=== PATIENT | female | born 1995 | race American Indian/Alaskan Native ===

== ENCOUNTER 2022-01-03 19:53 | Inpatient (IN) | payer OTHER ==
--- NOTE | 2022-01-03 23:39 | Ultrasound Report ---
ULTRASOUND OBSTETRIC LIMITED INDICATION / CLINICAL INFORMATION: Decreased movement. COMPARISON: None available. FINDINGS: AMNIOTIC FLUID INDEX (cm) = 4.6 PRESENTATION: Cephalic. HEART RATE (beats per minute): 130 ADDITIONAL FINDINGS: None. IMPRESSION: Single live intrauterine with a decreased amniotic fluid index of 4.6 cm. Signer Name: Jered De Leon MD Signed: 01/03/2022 11:35 PM Workstation Name: [id number]
--- NOTE | 2022-01-04 00:50 | Ultrasound Report ---
ULTRASOUND OBSTETRIC INDICATION: gestation. Clinical Gestational Age (GA): 40.5 weeks TECHNIQUE: Transabdominal. COMPARISON: Limited OB ultrasound performed earlier today. FINDINGS: There is a single intrauterine . Biparietal Diameter = 9.50 cm = 38 weeks, 5 day(s). Head Circumference = 32.0 cm = 36 weeks, 1 day(s). Abdominal Circumference = 31.9 cm = 35 weeks, 5 day(s). Femur Length = 7.4 cm = 37 weeks, 6 day(s). Average Ultrasound Age (AUA) = 37 weeks, 1 day(s). Heart Rate: 132 beats per minute. Estimated Weight in grams (if calculated): 2999 Estimated Weight Growth Percentile (if calculated): 6 Position: cephalic. Cervix: closed. Length in cm (if measured): Not measured Placenta: Not well visualized. Amniotic Fluid Volume: decreased Amniotic Fluid Index (EVELYN) in cm (if calculated): 4.6. Maternal Adnexa: No significant abnormality. IMPRESSION: 1. Single, living intrauterine with estimated sonographic age of 37 weeks, 1 day(s). 2. Decreased amniotic fluid index of 4.6 cm. 3. No other significant abnormality. Signer Name: Jered De Leon MD Signed: 01/04/2022 12:46 AM Workstation Name: [id number]
--- NOTE | 2022-01-04 01:55 | History and Physical Report ---
History of Present Illness Date of examination: 01/04/22 Date of admission: 01/03/2022 Chief complaint: my fluid was low and i'm having contractions History of present illness: Pt is a that gives EDC of 12/30/2021 and EGA of 40wks 5 days today that presented to [facility] 01/03/22 stating she was seen by her canceling and cutting control clerk at a birthing center that told her that her fluid level was at a 4 and was advised to come to nearest hospital for evaluation on 01/02/22. She present to triage also c/o contractions. She does not have any records. Sono done here shows ferny of 4.6 and EFW falls in the 6%tile for given EDC and EGA is 37+ weeks. Pt adimtted for IOL for oligo, IUGR and latent labor. 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 Family/Genetic History: none Social history: no significant social history - Obstetrical History Expected Date of Delivery: 12/30/21 Actual Gestation: 40 Week(s) 5 Day(s) : 2 Para: 1 Number of Living Children: 1 Medications and Allergies Allergies Allergy/AdvReac Type Severity Reaction Status Date / Time No Known Allergies Allergy Unverified 01/03/22 22:54 Review of Systems All systems: negative - Vital Signs Vital signs: Vital Signs Pulse BP Pulse Ox 71 117/68 96 01/03/22 20:52 01/03/22 20:52 01/03/22 20:52 Temp Pulse Resp BP Pulse Ox 97.9 F 66 16 117/68 94 01/03/22 21:35 01/04/22 01:49 01/03/22 21:35 01/03/22 20:52 01/04/22 01:49 - Physical Exam Lungs: Positive: Normal air movement Abdomen: Positive: normal appearance, soft Genitourinary (Female): Positive: normal external genitalia, normal perenium, other. Negative: perineal/vulvar lesions Deep Tendon Reflex Grade: Normal +2 - Obstetrical FHR: category 1 Results All other labs normal. Assessment and Plan - Patient Problems (1) 40 weeks gestation of Current Visit: Yes Status: Acute (2) Oligohydramnios in de souza in third trimester Current Visit: Yes Status: Acute Plan to address problem: -admit for IOL (3) IUGR (intrauterine growth retardation) affecting mother Current Visit: Yes Status: Acute Qualifiers: Trimester: third trimester Plan to address problem: -admit for IOL -antibx for unknown gbs
[2022-01-04] MEDS ORDERED: LOPERAMIDE 2 MG CAP PO PRN (02:12)
[2022-01-04] MEDS ORDERED: CARBOPROST TROMETHAMINE 250 MCG/1 ML INJ IM PRN (02:12)
[2022-01-04] MEDS ORDERED: fentaNYL 100 MCG/2 ML INJ IV PRN (02:12)
[2022-01-04] MEDS ORDERED: ACETAMINOPHEN 325 MG TAB PO PRN (02:12)
[2022-01-04] MEDS ORDERED: MINERAL OIL 30 ML ORAL LIQD PO PRN (02:12)
[2022-01-04] MEDS ORDERED: ePHEDrine SULFATE 50 MG/1 ML INJ IV PRN (02:12)
[2022-01-04] MEDS ORDERED: BUTORPHANOL 2 MG/1 ML INJ IV PRN (02:12)
[2022-01-04] MEDS ORDERED: TERBUTALINE 1 MG/1 ML INJ SUB-Q PRN (02:12)
[2022-01-04] MEDS ORDERED: miSOPROStol 200 MCG TAB PR PRN (02:12)
[2022-01-04] MEDS ORDERED: LIDOCAINE (2%) 20 MG/1 ML VIAL 20 ML MDV INFILTRATI ONE (02:12)
[2022-01-04] MEDS ORDERED: METHYLERGONOVINE MALEATE 0.2 MG/ML VIAL IM PRN (02:12)
[2022-01-04] MEDS ORDERED: OXYTOCIN 10 UNIT/1 ML INJ IM PRN (02:12)
[2022-01-04] MEDS ORDERED: AMPICILLIN/NS 2 GM/100 ML 2 GM/100 ML BAG IV ONE (02:42)
[2022-01-04] MEDS ORDERED: OXYTOCIN DRIP 30 UNITS/500 ML BAG IV SCH (03:00)
[2022-01-04] MEDS: LACTATED RINGERS 1,000 ML IV SCH ×2 (03:05→13:43)
[2022-01-04 03:07] LABS: Hematocrit 34.5 % (30.3-42.9); Hemoglobin 11.3 gm/dl (10.1-14.3); Mean Corpuscular HGB Conc 33 % (30-34); Mean Corpuscular Volume 78 fl (79-97); Platelet Count 282 K/mm3 (140-440); Red Cell Distribution Width 15.8 % (13.2-15.2)
[2022-01-04] MEDS: OXYTOCIN DRIP 30 UNITS/500 ML BAG IV SCH ×6 (03:23→16:36)
[2022-01-04 03:38] LABS: Hepatitis C Virus Antibody Non-Reactive (NonReactive)
[2022-01-04] MEDS: AMPICILLIN/NS 1 GM/50 ML 1 GM/50 ML BAG IV SCH ×3 (07:10→17:55)
--- NOTE | 2022-01-04 10:52 | Progress Note ---
Assessment and Plan Patient states she received PNC at in the [facility] and had US's at [place], Dr. Novak. Records are not available. She was recently diagnosed IUGR and IOL at 39 weeks was recommended however patient refused. She was also being followed for EVELYN 5. She was get US's twice a week. Her last US was 01/02 that revealed EVELYN < 5 and she was instrd to go to the nearest facility for delivery. States she was diagnosed with hyperthyroidism 2017 and has been taking PTU 100mg tid. States her this was o/w been unremarkable. GBS result pending. Her last was uncomplicated, she delivered in [facility]. Will attempt to obtain records. Continue Ampicillin and pitocin induction. Questions encouraged and answered, she voiced understanding and agrees with POC - Patient Problems (1) 40 weeks gestation of Current Visit: Yes Status: Acute (2) Hyperthyroidism Current Visit: Yes Status: Acute (3) IUGR (intrauterine growth retardation) affecting mother Current Visit: Yes Status: Acute Qualifiers: Trimester: third trimester (4) Oligohydramnios in de souza in third trimester Current Visit: Yes Status: Acute Subjective - Subjective Date of service: 01/04/22 Principal diagnosis: IUP@40 6/7wga, IUGR, hyperthyroidism, oligohydramnios Patient reports: movement normal, no new complaints Objective - Vital Signs Vital Signs: Vital Signs - 12hr 01/03/22 01/03/22 01/03/22 22:41 22:46 22:51 Temperature Pulse Rate 73 70 74 Respiratory Rate Blood Pressure Blood Pressure [Left] O2 Sat by Pulse 97 95 97 Oximetry O2 Sat by Pulse Oximetry [ Anterior Bilateral Throughout] 01/03/22 01/03/22 01/03/22 22:56 23:01 23:06 Temperature Pulse Rate 75 80 66 Respiratory Rate Blood Pressure Blood Pressure [Left] O2 Sat by Pulse 98 96 96 Oximetry O2 Sat by Pulse Oximetry [ Anterior Bilateral Throughout] 01/03/22 01/03/22 01/03/22 23:11 23:53 23:58 Temperature Pulse Rate 78 71 73 Respiratory Rate Blood Pressure Blood Pressure [Left] O2 Sat by Pulse 97 96 97 Oximetry O2 Sat by Pulse Oximetry [ Anterior Bilateral Throughout] 01/04/22 01/04/22 01/04/22 00:03 00:05 00:08 Temperature Pulse Rate 76 82 75 Respiratory Rate Blood Pressure Blood Pressure [Left] O2 Sat by Pulse 97 93 97 Oximetry O2 Sat by Pulse Oximetry [ Anterior Bilateral Throughout] 01/04/22 01/04/22 01/04/22 00:13 00:18 00:23 Temperature Pulse Rate 81 70 76 Respiratory Rate Blood Pressure Blood Pressure [Left] O2 Sat by Pulse 96 97 98 Oximetry O2 Sat by Pulse Oximetry [ Anterior Bilateral Throughout] 01/04/22 01/04/22 01/04/22 00:28 00:34 00:39 Temperature Pulse Rate 78 83 86 Respiratory Rate Blood Pressure Blood Pressure [Left] O2 Sat by Pulse 97 95 96 Oximetry O2 Sat by Pulse Oximetry [ Anterior Bilateral Throughout] 01/04/22 01/04/22 01/04/22 00:44 00:49 00:54 Temperature Pulse Rate 76 67 66 Respiratory Rate Blood Pressure Blood Pressure [Left] O2 Sat by Pulse 98 98 97 Oximetry O2 Sat by Pulse Oximetry [ Anterior Bilateral Throughout] 01/04/22 01/04/22 01/04/22 00:59 01:04 01:09 Temperature Pulse Rate 84 68 74 Respiratory Rate Blood Pressure Blood Pressure [Left] O2 Sat by Pulse 96 97 96 Oximetry O2 Sat by Pulse Oximetry [ Anterior Bilateral Throughout] 01/04/22 01/04/22 01/04/22 01:14 01:19 01:24 Temperature Pulse Rate 75 64 64 Respiratory Rate Blood Pressure Blood Pressure [Left] O2 Sat by Pulse 97 97 96 Oximetry O2 Sat by Pulse Oximetry [ Anterior Bilateral Throughout] 01/04/22 01/04/22 01/04/22 01:29 01:34 01:39 Temperature Pulse Rate 70 68 71 Respiratory Rate Blood Pressure Blood Pressure [Left] O2 Sat by Pulse 97 96 96 Oximetry O2 Sat by Pulse Oximetry [ Anterior Bilateral Throughout] 01/04/22 01/04/22 01/04/22 01:42 01:44 01:49 Temperature Pulse Rate 65 65 66 Respiratory Rate Blood Pressure Blood Pressure [Left] O2 Sat by Pulse 93 96 94 Oximetry O2 Sat by Pulse Oximetry [ Anterior Bilateral Throughout] 01/04/22 01/04/22 01/04/22 01:54 01:59 02:04 Temperature Pulse Rate 91 H 74 84 Respiratory Rate Blood Pressure Blood Pressure [Left] O2 Sat by Pulse 98 98 98 Oximetry O2 Sat by Pulse Oximetry [ Anterior Bilateral Throughout] 01/04/22 01/04/22 01/04/22 02:09 02:14 02:19 Temperature Pulse Rate 74 76 81 Respiratory Rate Blood Pressure Blood Pressure [Left] O2 Sat by Pulse 98 98 97 Oximetry O2 Sat by Pulse Oximetry [ Anterior Bilateral Throughout] 01/04/22 01/04/22 01/04/22 02:24 02:34 02:39 Temperature Pulse Rate 69 65 Respiratory 17 Rate Blood Pressure 131/81 Blood Pressure [Left] O2 Sat by Pulse 97 99 Oximetry O2 Sat by Pulse 98 Oximetry [ Anterior Bilateral Throughout] 01/04/22 01/04/22 01/04/22 02:44 02:48 02:49 Temperature Pulse Rate 69 73 71 Respiratory Rate Blood Pressure Blood Pressure [Left] O2 Sat by Pulse 97 93 97 Oximetry O2 Sat by Pulse Oximetry [ Anterior Bilateral Throughout] 01/04/22 01/04/22 01/04/22 02:54 02:59 03:03 Temperature Pulse Rate 69 67 67 Respiratory Rate Blood Pressure Blood Pressure [Left] O2 Sat by Pulse 96 98 93 Oximetry O2 Sat by Pulse Oximetry [ Anterior Bilateral Throughout] 01/04/22 01/04/22 01/04/22 03:04 03:09 03:14 Temperature Pulse Rate 65 68 64 Respiratory Rate Blood Pressure Blood Pressure [Left] O2 Sat by Pulse 97 99 97 Oximetry O2 Sat by Pulse Oximetry [ Anterior Bilateral Throughout] 01/04/22 01/04/22 01/04/22 03:19 03:24 03:29 Temperature Pulse Rate 59 L 70 68 Respiratory Rate Blood Pressure Blood Pressure [Left] O2 Sat by Pulse 97 98 98 Oximetry O2 Sat by Pulse Oximetry [ Anterior Bilateral Throughout] 01/04/22 01/04/22 01/04/22 03:34 03:40 03:45 Temperature Pulse Rate 84 60 63 Respiratory Rate Blood Pressure 120/80 Blood Pressure [Left] O2 Sat by Pulse 98 95 98 Oximetry O2 Sat by Pulse Oximetry [ Anterior Bilateral Throughout] 01/04/22 01/04/22 01/04/22 03:50 03:55 04:00 Temperature Pulse Rate 61 64 64 Respiratory Rate Blood Pressure Blood Pressure [Left] O2 Sat by Pulse 97 96 95 Oximetry O2 Sat by Pulse Oximetry [ Anterior Bilateral Throughout] 01/04/22 01/04/22 01/04/22 04:05 04:10 04:15 Temperature Pulse Rate 66 62 65 Respiratory Rate Blood Pressure Blood Pressure [Left] O2 Sat by Pulse 96 96 95 Oximetry O2 Sat by Pulse Oximetry [ Anterior Bilateral Throughout] 01/04/22 01/04/22 01/04/22 04:16 04:20 04:23 Temperature Pulse Rate 62 63 64 Respiratory Rate Blood Pressure Blood Pressure [Left] O2 Sat by Pulse 94 96 94 Oximetry O2 Sat by Pulse Oximetry [ Anterior Bilateral Throughout] 01/04/22 01/04/22 01/04/22 04:25 04:30 04:35 Temperature Pulse Rate 67 70 62 Respiratory Rate Blood Pressure Blood Pressure [Left] O2 Sat by Pulse 94 95 95 Oximetry O2 Sat by Pulse Oximetry [ Anterior Bilateral Throughout] 01/04/22 01/04/22 01/04/22 04:40 04:45 04:50 Temperature Pulse Rate 69 64 79 Respiratory Rate Blood Pressure 100/64 Blood Pressure [Left] O2 Sat by Pulse 94 93 95 Oximetry O2 Sat by Pulse Oximetry [ Anterior Bilateral Throughout] 01/04/22 01/04/22 01/04/22 04:55 05:00 05:05 Temperature Pulse Rate 62 64 80 Respiratory Rate Blood Pressure Blood Pressure [Left] O2 Sat by Pulse 94 96 95 Oximetry O2 Sat by Pulse Oximetry [ Anterior Bilateral Throughout] 01/04/22 01/04/22 01/04/22 05:10 05:15 05:16 Temperature Pulse Rate 64 72 75 Respiratory Rate Blood Pressure Blood Pressure [Left] O2 Sat by Pulse 94 95 94 Oximetry O2 Sat by Pulse Oximetry [ Anterior Bilateral Throughout] 01/04/22 01/04/22 01/04/22 05:20 05:21 05:25 Temperature Pulse Rate 70 66 65 Respiratory Rate Blood Pressure Blood Pressure [Left] O2 Sat by Pulse 96 93 94 Oximetry O2 Sat by Pulse Oximetry [ Anterior Bilateral Throughout] 01/04/22 01/04/22 01/04/22 05:27 05:30 05:34 Temperature Pulse Rate 74 71 69 Respiratory Rate Blood Pressure Blood Pressure [Left] O2 Sat by Pulse 94 95 94 Oximetry O2 Sat by Pulse Oximetry [ Anterior Bilateral Throughout] 01/04/22 01/04/22 01/04/22 05:35 05:39 05:40 Temperature Pulse Rate 63 66 65 Respiratory Rate Blood Pressure Blood Pressure [Left] O2 Sat by Pulse 95 92 95 Oximetry O2 Sat by Pulse Oximetry [ Anterior Bilateral Throughout] 01/04/22 01/04/22 01/04/22 05:41 05:44 05:45 Temperature Pulse Rate 63 62 62 Respiratory Rate Blood Pressure 100/66 Blood Pressure [Left] O2 Sat by Pulse 92 94 Oximetry O2 Sat by Pulse Oximetry [ Anterior Bilateral Throughout] 01/04/22 01/04/22 01/04/22 05:50 05:51 05:55 Temperature Pulse Rate 69 67 61 Respiratory Rate Blood Pressure Blood Pressure [Left] O2 Sat by Pulse 95 94 94 Oximetry O2 Sat by Pulse Oximetry [ Anterior Bilateral Throughout] 01/04/22 01/04/22 01/04/22 05:57 06:00 06:02 Temperature Pulse Rate 67 67 67 Respiratory Rate Blood Pressure Blood Pressure [Left] O2 Sat by Pulse 94 95 94 Oximetry O2 Sat by Pulse Oximetry [ Anterior Bilateral Throughout] 01/04/22 01/04/22 01/04/22 06:05 06:08 06:10 Temperature Pulse Rate 57 L 61 61 Respiratory Rate Blood Pressure Blood Pressure [Left] O2 Sat by Pulse 95 94 95 Oximetry O2 Sat by Pulse Oximetry [ Anterior Bilateral Throughout] 01/04/22 01/04/22 01/04/22 06:13 06:15 06:35 Temperature Pulse Rate 59 L 73 64 Respiratory Rate Blood Pressure Blood Pressure [Left] O2 Sat by Pulse 94 94 97 Oximetry O2 Sat by Pulse Oximetry [ Anterior Bilateral Throughout] 01/04/22 01/04/22 01/04/22 06:40 06:45 06:50 Temperature Pulse Rate 63 62 63 Respiratory Rate Blood Pressure Blood Pressure [Left] O2 Sat by Pulse 96 96 97 Oximetry O2 Sat by Pulse Oximetry [ Anterior Bilateral Throughout] 01/04/22 01/04/22 01/04/22 06:55 07:00 07:05 Temperature Pulse Rate 61 63 62 Respiratory Rate Blood Pressure Blood Pressure [Left] O2 Sat by Pulse 96 96 94 Oximetry O2 Sat by Pulse Oximetry [ Anterior Bilateral Throughout] 01/04/22 01/04/22 01/04/22 07:10 07:13 07:15 Temperature Pulse Rate 64 68 65 Respiratory Rate Blood Pressure Blood Pressure [Left] O2 Sat by Pulse 96 94 96 Oximetry O2 Sat by Pulse Oximetry [ Anterior Bilateral Throughout] 0901/04/22 01/04/22 07:17 07:20 07:25 Temperature 98 F Pulse Rate 66 72 70 Respiratory 18 Rate Blood Pressure Blood Pressure 123/80 [Left] O2 Sat by Pulse 97 97 98 Oximetry O2 Sat by Pulse 97 Oximetry [ Anterior Bilateral Throughout] 01/04/22 01/04/22 01/04/22 07:30 07:35 07:40 Temperature Pulse Rate 75 65 69 Respiratory Rate Blood Pressure Blood Pressure [Left] O2 Sat by Pulse 97 97 96 Oximetry O2 Sat by Pulse Oximetry [ Anterior Bilateral Throughout] 01/04/22 01/04/22 01/04/22 07:45 07:47 07:49 Temperature Pulse Rate 67 66 71 Respiratory Rate Blood Pressure 123/80 Blood Pressure [Left] O2 Sat by Pulse 96 94 Oximetry O2 Sat by Pulse Oximetry [ Anterior Bilateral Throughout] 01/04/22 01/04/22 01/04/22 07:50 08:01 08:06 Temperature Pulse Rate 68 71 Respiratory Rate Blood Pressure Blood Pressure [Left] O2 Sat by Pulse 96 86 96 Oximetry O2 Sat by Pulse Oximetry [ Anterior Bilateral Throughout] 01/04/22 01/04/22 01/04/22 08:11 08:16 08:21 Temperature Pulse Rate 78 67 65 Respiratory Rate Blood Pressure Blood Pressure [Left] O2 Sat by Pulse 97 97 98 Oximetry O2 Sat by Pulse Oximetry [ Anterior Bilateral Throughout] 01/04/22 01/04/22 01/04/22 08:26 08:31 08:36 Temperature Pulse Rate 75 67 74 Respiratory Rate Blood Pressure Blood Pressure [Left] O2 Sat by Pulse 97 96 97 Oximetry O2 Sat by Pulse Oximetry [ Anterior Bilateral Throughout] 01/04/22 01/04/22 01/04/22 08:41 08:46 08:51 Temperature Pulse Rate 74 68 74 Respiratory Rate Blood Pressure Blood Pressure [Left] O2 Sat by Pulse 96 97 96 Oximetry O2 Sat by Pulse Oximetry [ Anterior Bilateral Throughout] 01/04/22 01/04/22 01/04/22 08:56 08:58 09:19 Temperature Pulse Rate 67 85 85 Respiratory Rate Blood Pressure Blood Pressure [Left] O2 Sat by Pulse 98 90 97 Oximetry O2 Sat by Pulse Oximetry [ Anterior Bilateral Throughout] 01/04/22 01/04/22 01/04/22 09:24 09:29 09:34 Temperature Pulse Rate 91 H 101 H 95 H Respiratory Rate Blood Pressure Blood Pressure [Left] O2 Sat by Pulse 96 98 98 Oximetry O2 Sat by Pulse Oximetry [ Anterior Bilateral Throughout] 01/04/22 01/04/22 01/04/22 09:39 09:44 09:49 Temperature Pulse Rate 75 72 81 Respiratory Rate Blood Pressure Blood Pressure [Left] O2 Sat by Pulse 97 97 96 Oximetry O2 Sat by Pulse Oximetry [ Anterior Bilateral Throughout] 01/04/22 01/04/22 01/04/22 09:54 09:59 10:04 Temperature Pulse Rate 72 74 74 Respiratory Rate Blood Pressure Blood Pressure [Left] O2 Sat by Pulse 96 96 98 Oximetry O2 Sat by Pulse Oximetry [ Anterior Bilateral Throughout] 01/04/22 01/04/22 01/04/22 10:08 10:09 10:14 Temperature Pulse Rate 75 73 70 Respiratory Rate Blood Pressure Blood Pressure [Left] O2 Sat by Pulse 93 98 98 Oximetry O2 Sat by Pulse Oximetry [ Anterior Bilateral Throughout] 01/04/22 01/04/22 01/04/22 10:19 10:24 10:29 Temperature Pulse Rate 83 76 74 Respiratory Rate Blood Pressure Blood Pressure [Left] O2 Sat by Pulse 98 98 99 Oximetry O2 Sat by Pulse Oximetry [ Anterior Bilateral Throughout] 01/04/22 10:34 Temperature Pulse Rate 88 Respiratory Rate Blood Pressure Blood Pressure [Left] O2 Sat by Pulse 99 Oximetry O2 Sat by Pulse Oximetry [ Anterior Bilateral Throughout] - Exam Breasts: deferred Cardiovascular: Regular rate Lungs: Normal air movement Abdomen: Present: soft. Absent: distention, tenderness, guarding Vulva: both: normal Uterus: Present: fundal height above umbilicus. Absent: tenderness FHR: category 1 Uterine Contraction Monitor Mode: External Cervical Dilatation: 4 Cervical Effacement Percentage: 80 station: -1 Uterine Contraction Pattern: Regular Extremities: normal - Labs Labs: Abnormal Labs 01/04/22 02:13 MCV 78 L MCH 26 L RDW 15.8 H Laboratory Results - last 24 hr 01/04/22 01/04/22 01/04/22 02:13 02:13 02:13 WBC 6.4 RBC 4.40 Hgb 11.3 Hct 34.5 MCV 78 L MCH 26 L MCHC 33 RDW 15.8 H Plt Count 282 Sickle Cell Screen Positive Syphilis IgG/IgM Ab Nonreactive Hep Bs Antigen Hepatitis C Antibody Non-reactive HIV 1&2 Antibody Rapid HIV P24 Antigen Blood Type O POSITIVE Antibody Screen Negative 01/04/22 01/04/22 02:13 02:13 WBC RBC Hgb Hct MCV MCH MCHC RDW Plt Count Sickle Cell Screen Syphilis IgG/IgM Ab Hep Bs Antigen Non-reactive Hepatitis C Antibody HIV 1&2 Antibody Rapid Non react HIV P24 Antigen Non react Blood Type Antibody Screen
--- NOTE | 2022-01-04 15:11 | Progress Note ---
Assessment and Plan Continue pitocin - Patient Problems (1) 40 weeks gestation of Current Visit: Yes Status: Acute (2) Hyperthyroidism Current Visit: Yes Status: Acute (3) IUGR (intrauterine growth retardation) affecting mother Current Visit: Yes Status: Acute Qualifiers: Trimester: third trimester (4) Oligohydramnios in de souza in third trimester Current Visit: Yes Status: Acute Subjective - Subjective Date of service: 01/04/22 Principal diagnosis: IUP@40 6/7wga, IUGR, hyperthyroidism, oligohydramnios Patient reports: loss of fluid, movement normal, no new complaints Objective - Vital Signs Vital Signs: Vital Signs - 12hr 01/04/22 01/04/22 01/04/22 03:14 03:19 03:24 Temperature Pulse Rate 64 59 L 70 Respiratory Rate Blood Pressure Blood Pressure [Left] O2 Sat by Pulse 97 97 98 Oximetry O2 Sat by Pulse Oximetry [ Anterior Bilateral Throughout] 01/04/22 01/04/22 01/04/22 03:29 03:34 03:40 Temperature Pulse Rate 68 84 60 Respiratory Rate Blood Pressure 120/80 Blood Pressure [Left] O2 Sat by Pulse 98 98 95 Oximetry O2 Sat by Pulse Oximetry [ Anterior Bilateral Throughout] 01/04/22 01/04/22 01/04/22 03:45 03:50 03:55 Temperature Pulse Rate 63 61 64 Respiratory Rate Blood Pressure Blood Pressure [Left] O2 Sat by Pulse 98 97 96 Oximetry O2 Sat by Pulse Oximetry [ Anterior Bilateral Throughout] 01/04/22 01/04/22 01/04/22 04:00 04:05 04:10 Temperature Pulse Rate 64 66 62 Respiratory Rate Blood Pressure Blood Pressure [Left] O2 Sat by Pulse 95 96 96 Oximetry O2 Sat by Pulse Oximetry [ Anterior Bilateral Throughout] 01/04/22 01/04/22 01/04/22 04:15 04:16 04:20 Temperature Pulse Rate 65 62 63 Respiratory Rate Blood Pressure Blood Pressure [Left] O2 Sat by Pulse 95 94 96 Oximetry O2 Sat by Pulse Oximetry [ Anterior Bilateral Throughout] 01/04/22 01/04/22 01/04/22 04:23 04:25 04:30 Temperature Pulse Rate 64 67 70 Respiratory Rate Blood Pressure Blood Pressure [Left] O2 Sat by Pulse 94 94 95 Oximetry O2 Sat by Pulse Oximetry [ Anterior Bilateral Throughout] 01/04/22 01/04/2201/04/22 04:35 04:40 04:45 Temperature Pulse Rate 62 69 64 Respiratory Rate Blood Pressure 100/64 Blood Pressure [Left] O2 Sat by Pulse 95 94 93 Oximetry O2 Sat by Pulse Oximetry [ Anterior Bilateral Throughout] 01/04/22 01/04/22 01/04/22 04:50 04:55 05:00 Temperature Pulse Rate 79 62 64 Respiratory Rate Blood Pressure Blood Pressure [Left] O2 Sat by Pulse 95 94 96 Oximetry O2 Sat by Pulse Oximetry [ Anterior Bilateral Throughout] 01/04/22 01/04/22 01/04/22 05:05 05:10 05:15 Temperature Pulse Rate 80 64 72 Respiratory Rate Blood Pressure Blood Pressure [Left] O2 Sat by Pulse 95 94 95 Oximetry O2 Sat by Pulse Oximetry [ Anterior Bilateral Throughout] 01/04/22 01/04/22 01/04/22 05:16 05:20 05:21 Temperature Pulse Rate 75 70 66 Respiratory Rate Blood Pressure Blood Pressure [Left] O2 Sat by Pulse 94 96 93 Oximetry O2 Sat by Pulse Oximetry [ Anterior Bilateral Throughout] 01/04/22 01/04/22 01/04/22 05:25 05:27 05:30 Temperature Pulse Rate 65 74 71 Respiratory Rate Blood Pressure Blood Pressure [Left] O2 Sat by Pulse 94 94 95 Oximetry O2 Sat by Pulse Oximetry [ Anterior Bilateral Throughout] 01/04/22 01/04/22 01/04/22 05:34 05:35 05:39 Temperature Pulse Rate 69 63 66 Respiratory Rate Blood Pressure Blood Pressure [Left] O2 Sat by Pulse 94 95 92 Oximetry O2 Sat by Pulse Oximetry [ Anterior Bilateral Throughout] 01/04/22 01/04/22 01/04/22 05:40 05:41 05:44 Temperature Pulse Rate 65 63 62 Respiratory Rate Blood Pressure 100/66 Blood Pressure [Left] O2 Sat by Pulse 95 92 Oximetry O2 Sat by Pulse Oximetry [ Anterior Bilateral Throughout] 01/04/22 01/04/22 01/04/22 05:45 05:50 05:51 Temperature Pulse Rate 62 69 67 Respiratory Rate Blood Pressure Blood Pressure [Left] O2 Sat by Pulse 94 95 94 Oximetry O2 Sat by Pulse Oximetry [ Anterior Bilateral Throughout] 01/04/22 01/04/22 01/04/22 05:55 05:57 06:00 Temperature Pulse Rate 61 67 67 Respiratory Rate Blood Pressure Blood Pressure [Left] O2 Sat by Pulse 94 94 95 Oximetry O2 Sat by Pulse Oximetry [ Anterior Bilateral Throughout] 01/04/22 01/04/22 01/04/22 06:02 06:05 06:08 Temperature Pulse Rate 67 57 L 61 Respiratory Rate Blood Pressure Blood Pressure [Left] O2 Sat by Pulse 94 95 94 Oximetry O2 Sat by Pulse Oximetry [ Anterior Bilateral Throughout] 01/04/22 01/04/22 01/04/22 06:10 06:13 06:15 Temperature Pulse Rate 61 59 L 73 Respiratory Rate Blood Pressure Blood Pressure [Left] O2 Sat by Pulse 95 94 94 Oximetry O2 Sat by Pulse Oximetry [ Anterior Bilateral Throughout] 01/04/22 01/04/22 01/04/22 06:35 06:40 06:45 Temperature Pulse Rate 64 63 62 Respiratory Rate Blood Pressure Blood Pressure [Left] O2 Sat by Pulse 97 96 96 Oximetry O2 Sat by Pulse Oximetry [ Anterior Bilateral Throughout] 01/04/22 01/04/22 01/04/22 06:50 06:55 07:00 Temperature Pulse Rate 63 61 63 Respiratory Rate Blood Pressure Blood Pressure [Left] O2 Sat by Pulse 97 96 96 Oximetry O2 Sat by Pulse Oximetry [ Anterior Bilateral Throughout] 01/04/22 01/04/22 01/04/22 07:05 07:10 07:13 Temperature Pulse Rate 62 64 68 Respiratory Rate Blood Pressure Blood Pressure [Left] O2 Sat by Pulse 94 96 94 Oximetry O2 Sat by Pulse Oximetry [ Anterior Bilateral Throughout] 01/04/22 01/04/22 01/04/22 07:15 07:17 07:20 Temperature 98 F Pulse Rate 65 66 72 Respiratory 18 Rate Blood Pressure Blood Pressure 123/80 [Left] O2 Sat by Pulse 96 97 97 Oximetry O2 Sat by Pulse 97 Oximetry [ Anterior Bilateral Throughout] 01/04/22 01/04/22 01/04/22 07:25 07:30 07:35 Temperature Pulse Rate 70 75 65 Respiratory Rate Blood Pressure Blood Pressure [Left] O2 Sat by Pulse 98 97 97 Oximetry O2 Sat by Pulse Oximetry [ Anterior Bilateral Throughout] 01/04/22 01/04/22 01/04/22 07:40 07:45 07:47 Temperature Pulse Rate 69 67 66 Respiratory Rate Blood Pressure 123/80 Blood Pressure [Left] O2 Sat by Pulse 96 96 Oximetry O2 Sat by Pulse Oximetry [ Anterior Bilateral Throughout] 01/04/22 01/04/22 01/04/22 07:49 07:50 08:01 Temperature Pulse Rate 71 68 Respiratory Rate Blood Pressure Blood Pressure [Left] O2 Sat by Pulse 94 96 86 Oximetry O2 Sat by Pulse Oximetry [ Anterior Bilateral Throughout] 01/04/22 01/04/22 01/04/22 08:06 08:11 08:16 Temperature Pulse Rate 71 78 67 Respiratory Rate Blood Pressure Blood Pressure [Left] O2 Sat by Pulse 96 97 97 Oximetry O2 Sat by Pulse Oximetry [ Anterior Bilateral Throughout] 01/04/22 01/04/22 01/04/22 08:21 08:26 08:31 Temperature Pulse Rate 65 75 67 Respiratory Rate Blood Pressure Blood Pressure [Left] O2 Sat by Pulse 98 97 96 Oximetry O2 Sat by Pulse Oximetry [ Anterior Bilateral Throughout] 01/04/22 01/04/22 01/04/22 08:36 08:41 08:46 Temperature Pulse Rate 74 74 68 Respiratory Rate Blood Pressure Blood Pressure [Left] O2 Sat by Pulse 97 96 97 Oximetry O2 Sat by Pulse Oximetry [ Anterior Bilateral Throughout] 01/04/22 01/04/22 01/04/22 08:51 08:56 08:58 Temperature Pulse Rate 74 67 85 Respiratory Rate Blood Pressure Blood Pressure [Left] O2 Sat by Pulse 96 98 90 Oximetry O2 Sat by Pulse Oximetry [ Anterior Bilateral Throughout] 01/04/22 01/04/22 01/04/22 09:19 09:24 09:29 Temperature Pulse Rate 85 91 H 101 H Respiratory Rate Blood Pressure Blood Pressure [Left] O2 Sat by Pulse 97 96 98 Oximetry O2 Sat by Pulse Oximetry [ Anterior Bilateral Throughout] 01/04/22 01/04/22 01/04/22 09:34 09:39 09:44 Temperature Pulse Rate 95 H 75 72 Respiratory Rate Blood Pressure Blood Pressure [Left] O2 Sat by Pulse 98 97 97 Oximetry O2 Sat by Pulse Oximetry [ Anterior Bilateral Throughout] 01/04/22 01/04/22 01/04/22 09:49 09:54 09:59 Temperature Pulse Rate 81 72 74 Respiratory Rate Blood Pressure Blood Pressure [Left] O2 Sat by Pulse 96 96 96 Oximetry O2 Sat by Pulse Oximetry [ Anterior Bilateral Throughout] 01/04/22 01/04/22 01/04/22 10:04 10:08 10:09 Temperature Pulse Rate 74 75 73 Respiratory Rate Blood Pressure Blood Pressure [Left] O2 Sat by Pulse 98 93 98 Oximetry O2 Sat by Pulse Oximetry [ Anterior Bilateral Throughout] 01/04/22 01/04/22 01/04/22 10:14 10:19 10:24 Temperature Pulse Rate 70 83 76 Respiratory Rate Blood Pressure Blood Pressure [Left] O2 Sat by Pulse 98 98 98 Oximetry O2 Sat by Pulse Oximetry [ Anterior Bilateral Throughout] 01/04/22 01/04/22 01/04/22 10:29 10:34 10:39 Temperature Pulse Rate 74 88 95 H Respiratory Rate Blood Pressure Blood Pressure [Left] O2 Sat by Pulse 99 99 95 Oximetry O2 Sat by Pulse Oximetry [ Anterior Bilateral Throughout] 01/04/22 01/04/22 01/04/22 10:50 10:55 11:00 Temperature Pulse Rate 76 71 100 H Respiratory Rate Blood Pressure Blood Pressure [Left] O2 Sat by Pulse 100 97 97 Oximetry O2 Sat by Pulse Oximetry [ Anterior Bilateral Throughout] 01/04/22 01/04/22 01/04/22 11:05 11:10 11:13 Temperature Pulse Rate 78 79 82 Respiratory Rate Blood Pressure Blood Pressure [Left] O2 Sat by Pulse 96 96 94 Oximetry O2 Sat by Pulse Oximetry [ Anterior Bilateral Throughout] 01/04/22 01/04/22 01/04/22 11:15 11:20 11:25 Temperature Pulse Rate 76 77 74 Respiratory Rate Blood Pressure Blood Pressure [Left] O2 Sat by Pulse 96 96 97 Oximetry O2 Sat by Pulse Oximetry [ Anterior Bilateral Throughout] 01/04/22 01/04/22 01/04/22 11:30 11:35 11:40 Temperature Pulse Rate 70 70 73 Respiratory Rate Blood Pressure Blood Pressure [Left] O2 Sat by Pulse 99 97 96 Oximetry O2 Sat by Pulse Oximetry [ Anterior Bilateral Throughout] 01/04/22 01/04/22 01/04/22 11:45 11:51 12:15 Temperature Pulse Rate 68 73 66 Respiratory Rate Blood Pressure Blood Pressure [Left] O2 Sat by Pulse 96 98 98 Oximetry O2 Sat by Pulse Oximetry [ Anterior Bilateral Throughout] 01/04/22 01/04/22 01/04/22 12:20 12:25 12:30 Temperature Pulse Rate 70 64 69 Respiratory Rate Blood Pressure Blood Pressure [Left] O2 Sat by Pulse 99 98 97 Oximetry O2 Sat by Pulse Oximetry [ Anterior Bilateral Throughout] 01/04/22 01/04/22 01/04/22 12:35 12:40 12:45 Temperature Pulse Rate 70 63 75 Respiratory Rate Blood Pressure Blood Pressure [Left] O2 Sat by Pulse 96 98 98 Oximetry O2 Sat by Pulse Oximetry [ Anterior Bilateral Throughout] 01/04/22 01/04/22 01/04/22 12:50 12:55 13:00 Temperature Pulse Rate 63 77 71 Respiratory Rate Blood Pressure Blood Pressure [Left] O2 Sat by Pulse 97 97 98 Oximetry O2 Sat by Pulse Oximetry [ Anterior Bilateral Throughout] 01/04/22 01/04/22 01/04/22 13:05 13:10 13:33 Temperature Pulse Rate 73 75 61 Respiratory Rate Blood Pressure Blood Pressure [Left] O2 Sat by Pulse 97 98 98 Oximetry O2 Sat by Pulse Oximetry [ Anterior Bilateral Throughout] 01/04/22 01/04/22 01/04/22 13:38 13:43 13:48 Temperature Pulse Rate 64 64 65 Respiratory Rate Blood Pressure Blood Pressure [Left] O2 Sat by Pulse 98 97 97 Oximetry O2 Sat by Pulse Oximetry [ Anterior Bilateral Throughout] 01/04/22 01/04/22 01/04/22 13:53 13:58 14:03 Temperature Pulse Rate 63 65 67 Respiratory Rate Blood Pressure Blood Pressure [Left] O2 Sat by Pulse 97 96 97 Oximetry O2 Sat by Pulse Oximetry [ Anterior Bilateral Throughout] 01/04/22 01/04/22 01/04/22 14:08 14:13 14:18 Temperature Pulse Rate 65 66 63 Respiratory Rate Blood Pressure Blood Pressure [Left] O2 Sat by Pulse 97 97 96 Oximetry O2 Sat by Pulse Oximetry [ Anterior Bilateral Throughout] 01/04/22 01/04/22 01/04/22 14:23 14:28 14:29 Temperature Pulse Rate 65 67 69 Respiratory Rate Blood Pressure Blood Pressure [Left] O2 Sat by Pulse 96 96 94 Oximetry O2 Sat by Pulse Oximetry [ Anterior Bilateral Throughout] 01/04/22 01/04/22 01/04/22 14:33 14:38 14:42 Temperature Pulse Rate 70 71 69 Respiratory Rate Blood Pressure Blood Pressure [Left] O2 Sat by Pulse 95 95 94 Oximetry O2 Sat by Pulse Oximetry [ Anterior Bilateral Throughout] 01/04/22 01/04/22 01/04/22 14:43 15:01 15:02 Temperature Pulse Rate 78 61 Respiratory Rate Blood Pressure Blood Pressure [Left] O2 Sat by Pulse 96 92 92 Oximetry O2 Sat by Pulse Oximetry [ Anterior Bilateral Throughout] 01/04/22 01/04/22 15:04 15:06 Temperature 98.7 F Pulse Rate 79 67 Respiratory 20 Rate Blood Pressure Blood Pressure 123/80 [Left] O2 Sat by Pulse 94 96 Oximetry O2 Sat by Pulse Oximetry [ Anterior Bilateral Throughout] - Exam Breasts: deferred Cardiovascular: Regular rate Lungs: Normal air movement Abdomen: Present: soft. Absent: distention, tenderness, guarding Vulva: both: normal Uterus: Present: fundal height above umbilicus. Absent: tenderness FHR: category 1 Uterine Contraction Monitor Mode: External Cervical Dilatation: 4 Cervical Effacement Percentage: 80 station: -1 AROM, no fluid Uterine Contraction Pattern: Regular - Labs Labs: Abnormal Labs 01/04/22 02:13 MCV 78 L MCH 26 L RDW 15.8 H Laboratory Results - last 24 hr 01/04/22 01/04/22 01/04/22 02:13 02:13 02:13 WBC 6.4 RBC 4.40 Hgb 11.3 Hct 34.5 MCV 78 L MCH 26 L MCHC 33 RDW 15.8 H Plt Count 282 Sickle Cell Screen Positive Syphilis IgG/IgM Ab Nonreactive Hep Bs Antigen Hepatitis C Antibody Non-reactive HIV 1&2 Antibody Rapid HIV P24 Antigen Blood Type O POSITIVE Antibody Screen Negative 01/04/22 01/04/22 02:13 02:13 WBC RBC Hgb Hct MCV MCH MCHC RDW Plt Count Sickle Cell Screen Syphilis IgG/IgM Ab Hep Bs Antigen Non-reactive Hepatitis C Antibody HIV 1&2 Antibody Rapid Non react HIV P24 Antigen Non react Blood Type Antibody Screen
--- NOTE | 2022-01-04 18:41 | Procedure Note ---
OB Delivery Note - Delivery Date of Delivery: 01/04/22 Surgeon: STEPHON FERNANDEZ Estimated blood loss: 300cc - Vaginal Delivery presentation: vertex Delivery position: OA Intrapartum events: none Delivery induction: oxytocin Delivery augmentation: rupture of membranes, pitocin Delivery monitor: external FHT, external uterine Route of delivery: Delivery placenta: spontaneous Delivery cord: 3 umbilical vessels Episiotomy: none Delivery laceration: none Anesthesia: none Delivery comments: To patient's room as she was found to be complete and pushing. With good maternal pushing effort, delivery of a 3240 g male in JENNIFER position over an intact perineum. No nuchal noted. Remainder of delivered without difficulty. Cord clamped and cut and to nurses for evaluation. Placenta delivered spontaneously and intact. Profuse bleeding noted during fundal massage. Bimanual massage initiated as lower uterine segment noted to be atonic. Methergine IM given and Cytotec CO. Hemostasis achieved. Vagina and perineum explored and no lacerations noted. Mother and remain in delivery room in stable condition. - A at 1 minute: 8 at 5 minutes: 9 Gender: Male
[2022-01-04] MEDS ORDERED: PROMETHAZINE 25 MG RECT SUPP PR PRN (21:43)
[2022-01-04] MEDS ORDERED: oxyCODONE /ACETAMINOPHEN 5-325MG TAB PO PRN (21:43)
[2022-01-04] MEDS ORDERED: LANOLIN/ZINC/DIMETHICONE (LANSINOH) 7 GM TP PRN (21:43)
[2022-01-04] MEDS ORDERED: MAGNESIUM HYDROXIDE (MOM) ORAL LIQD UDC PO PRN (21:43)
[2022-01-04] MEDS ORDERED: diphenhydrAMINE 25 MG CAP PO PRN (21:43)
[2022-01-04] MEDS ORDERED: WITCH HAZEL/ GLYCERIN PAD TP PRN (21:43)
[2022-01-04] MEDS ORDERED: ONDANSETRON 4 MG/2 ML INJ IV PRN (21:43)
[2022-01-04] MEDS ORDERED: PROMETHAZINE 25 MG TAB PO PRN (21:43)
[2022-01-04] MEDS: IBUPROFEN 800 MG TAB PO SCH (22:13)
[2022-01-05] MEDS: IBUPROFEN 800 MG TAB PO SCH ×4 (05:00→23:34)
[2022-01-05 09:16] LABS: Hematocrit 32.2 % (30.3-42.9); Hemoglobin 10.7 gm/dl (10.1-14.3)
[2022-01-05] MEDS: PRENATAL VIT27-FE FUMARATE-FOLIC ACID VIT TAB PO SCH (09:23)
--- NOTE | 2022-01-05 11:31 | Progress Note ---
Assessment and Plan - Patient Problems (1) (spontaneous vaginal delivery) Current Visit: Yes Status: Acute Plan to address problem: Routine care Post-delivery H/H reviewed and WNL Anticipate discharge home in the AM Subjective - Subjective Date of service: 01/05/22 Principal diagnosis: PPD #1 Interval history: Patient is PPD #1 s/p . Voices no complaints. Ambulating in the hallway and visiting with family. Notes abdominal cramping, but able to tolerate. Had some vaginal bleeding similar to a period. Denies any lightheadedness, dizziness, chest pain, or SOB. Patient reports: appetite normal, voiding normally, pain well controlled, ambulating normally : doing well Objective - Vital Signs Latest vital signs: Vital Signs Temp Pulse Resp BP BP Pulse Ox Pulse Ox 01/05/22 08:03 98.2 F 64 20 108/72 98 01/05/22 08:00 98 01/05/22 04:43 98.5 F 68 20 114/75 98 01/05/22 01:03 98.8 F 69 20 108/65 98 01/04/22 21:47 98 01/04/22 19:19 84 97 01/04/22 19:14 80 98 01/04/22 19:12 84 129/79 01/04/22 19:09 81 96 01/04/22 19:04 80 97 01/04/22 18:59 78 98 01/04/22 18:58 71 126/88 01/04/22 18:54 74 96 01/04/22 18:49 73 97 01/04/22 18:44 71 98 01/04/22 18:39 65 99 01/04/22 18:35 67 132/73 01/04/22 18:34 78 98 01/04/22 17:10 68 97 01/04/22 17:05 67 99 01/04/22 17:00 80 97 01/04/22 16:55 80 96 01/04/22 16:53 67 91 01/04/22 16:50 74 99 01/04/22 16:45 81 97 01/04/22 16:40 69 97 01/04/22 16:35 62 97 01/04/22 16:32 63 93 01/04/22 16:30 75 97 01/04/22 16:27 66 94 01/04/22 16:25 64 92 09/03/22 16:20 67 94 01/04/22 16:15 64 98 01/04/22 16:14 63 94 01/04/22 16:10 64 98 01/04/22 16:05 73 98 01/04/22 16:00 75 98 01/04/22 15:52 89 97 01/04/22 15:47 72 96 01/04/22 15:42 87 96 01/04/22 15:38 72 93 01/04/22 15:37 78 98 01/04/22 15:32 70 99 01/04/22 15:27 74 96 01/04/22 15:16 67 96 01/04/22 15:12 85 92 01/04/22 15:11 89 96 01/04/22 15:06 67 96 01/04/22 15:04 98.7 F 79 20 123/80 94 01/04/22 15:02 61 92 01/04/22 15:01 92 01/04/22 14:43 78 96 01/04/22 14:42 69 94 01/04/22 14:38 71 95 01/04/22 14:33 70 95 01/04/22 14:29 69 94 01/04/22 14:28 67 96 01/04/22 14:23 65 96 01/04/22 14:18 63 96 01/04/22 14:13 66 97 01/04/22 14:08 65 97 01/04/22 14:03 67 97 01/04/22 13:58 65 96 01/04/22 13:53 63 97 01/04/22 13:48 65 97 01/04/22 13:43 64 97 01/04/22 13:38 64 98 01/04/22 13:33 61 98 01/04/22 13:10 75 98 01/04/22 13:05 73 97 01/04/22 13:00 71 98 01/04/22 12:55 77 97 01/04/22 12:50 63 97 01/04/22 12:45 75 98 01/04/22 12:40 63 98 01/04/22 12:35 70 96 01/04/22 12:30 69 97 01/04/22 12:25 64 98 01/04/22 12:20 70 99 01/04/22 12:15 66 98 01/04/22 11:51 73 98 01/04/22 11:45 68 96 01/04/22 11:40 73 96 01/04/22 11:35 70 97 01/04/22 11:30 70 99 Intake and Output 01/04/22 01/05/22 01/05/22 23:59 07:59 15:59 Intake Total 613.134 240 Output Total 200 Balance 613.134 -200 240 Intake: IV 13.134 PITOCin/NS 30 UNIT/500ML 13.134 30 units In 500 ml @ 2 mls/hr IV TITR NINA Rx#: [id number] Oral 360 240 Intake, Free Water 240 Output: Urine 200 Void 200 Other: Total, Intake Amount 360 240 Total, Output Amount 200 # Voids Void 1 1 Estimated Blood Loss 300 - Exam Extremities: Present: normal
[2022-01-05] MEDS ORDERED: TETANUS,DIPH,PERTUSS(ACELL) VACCINE 0.5 ML SYRINGE IM ONE (23:31)
[2022-01-06] MEDS: IBUPROFEN 800 MG TAB PO SCH ×2 (05:40→11:29)
[2022-01-06 09:04] VITALS: BP 116/76
[2022-01-06] MEDS: PRENATAL VIT27-FE FUMARATE-FOLIC ACID VIT TAB PO SCH (09:28)
--- NOTE | 2022-01-06 12:11 | Discharge Summary ---
Providers - Providers Date of Admission: 01/04/22 02:17 Date of discharge: 01/06/22 Attending physician: KOJO GALICIA Primary care physician: KOJO GALICIA Hospitalization Reason for admission: IOL for oligo and IUGR Condition: Good Pertinent studies: post delivery H&H 10.7/32.2; VSSAF Procedures: Hospital course: uncomplicated and course, bleeding scant, well. Disposition: 01 HOME / SELF CARE / HOMELESS Final Discharge Diagnosis (Prints w/discharge instructions): Time spent for discharge: 20 - Discharge Diagnoses (1) (spontaneous vaginal delivery) Status: Acute Core Measure Documentation - Palliative Care Palliative Care/ Comfort Measures: Not Applicable - Core Measures Any of the following diagnoses?: none Exam - Constitutional Vitals: Temp Pulse Resp BP Pulse Ox 97.4 F L 64 18 116/76 98 01/06/22 08:11 01/06/22 08:11 01/06/22 08:11 01/06/22 08:11 01/06/22 08:11 General appearance: Present: no acute distress, well-nourished - EENT Eyes: Present: EOM intact ENT: hearing intact - Neck Neck: Present: supple, normal ROM - Respiratory Respiratory effort: normal - Cardiovascular Rhythm: regular - Extremities Extremities: No edema, Full ROM Peripheral Pulses: within normal limits - Abdominal General gastrointestinal: Present: soft, non-tender Female genitourinary: Present: normal - Integumentary Integumentary: Present: clear, warm, dry - Musculoskeletal Musculoskeletal: strength equal bilaterally - Psychiatric Psychiatric: appropriate mood/affect - Neurologic Neurologic: CNII-XII intact Plan Activity: no restrictions, advance as tolerated Diet: regular Additional Instructions: Congratulations! Please call [facility] at [phone] to schedule your son's circumcision and your visit at 4 weeks. Please call the office if you have any questions! Follow up with: KOJO GALICIA MD [Primary Care Provider] - 7 Days (Congratulations! Please call [facility] at [phone] to schedule your son's circumcision and your visit at 4 weeks. Please call the office if you have any questions!) Forms: [facility] Discharge Summary Prescriptions: Lidocain2.5%/Prilocai2.5% [Emla] 5 gm TP ONCE PRN #1 tube PRN Reason: Pain Ibuprofen [Motrin 800 MG tab] 800 mg PO Q8HR PRN #30 tablet PRN Reason: Pain
== END 2022-01-06 15:45 | disposition home or self-care (01) | DRG 806 ==
LOC: TRG 19:53 → APU 19:56 → LD 01-04 02:17 → TRG 01-04 02:17 → OB 01-04 21:19
PROVIDERS: ADMIT Obstetrics & Gynecology; ATTEND Obstetrics & Gynecology
PROC: 10E0XZZ Delivery of Products of Conception, External Approach (ICD-10-PCS; principal; 2022-01-04)
PROC: 3E033VJ Introduction of Other Hormone into Peripheral Vein, Percutaneous Approach (ICD-10-PCS; 2022-01-04)
PROC: 3E0234Z Introduction of Serum, Toxoid and Vaccine into Muscle, Percutaneous Approach (ICD-10-PCS; 2022-01-05)
DX: O36.5930 Maternal care for other known or suspected poor fetal growth, third trimester, not applicable or unspecified (principal); O41.03X0 Oligohydramnios, third trimester, not applicable or unspecified; Z37.0 Single live birth; Z3A.40 40 weeks gestation of pregnancy; Z20.822 Contact with and (suspected) exposure to COVID-19; Z23 Encounter for immunization; O99.284 Endocrine, nutritional and metabolic diseases complicating childbirth; E05.90 Thyrotoxicosis, unspecified without thyrotoxic crisis or storm
CPT/HCPCS: 36415; 76815; 76816; 85014; 85018; 85027; 85660; 86592; 86706; 86803; 86850; 86900; 86901; 87806; 90471; 90715; G0378; J0290; J0595; J2210; J2590; J7120; U0003